=== PATIENT | male | born 1970 | race Caucasian/White ===

== ENCOUNTER 2021-03-17 16:46 | Emergency (ER) | payer MEDICAID, SELFPAY ==
[2021-03-17 16:54] VITALS: BP 160/80; PULSE 73; RESP 20; TEMP 36.8; O2SAT 95; BMI 28.1
--- NOTE | 2021-03-17 17:15 | W.ED.ALCOHOL ---
HPI - Alcohol General: Chief Complaint: Alcohol Stated Complaint: SI; ETOH Time Seen by Provider: 03/17/21 16:50 History of Present Illness: HPI narrative: 51-year-old male presents emergency room acutely intoxicated EMS. Ambulance was called evidently by family members according the patient after he punched a window out to get out more alcohol is been drinking heavily throughout the day drinks 12 pack of high alcohol content beer. He still appears under the influence. However he is awake alert answers questions appropriately is polite and follows all instructions were given. He is not opposed to exam. When asked about suicidal homicidal ideation he was adamantly denied. On multiple occasions every asked him he denies. Asked him why family member might think the call about him potentially being suicidal he says he thought it was a brother who was trying to keep him from drinking. He readily admits he is intoxicated. 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 He states it has been a problem since the stroke and is part of the reason he drinks. 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 There are no family members present to give any other history. 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 Chronic alcohol use: Yes Recent trauma: No Associated symptoms: Reports depression; Deny abdominal pain, diaphoresis, hematemesis, involuntary movements, melena, nausea, seizure-like activity, suicidal ideation, syncope or vomiting Review of Systems Const: Denies: diaphoresis Card: Denies: syncope GI: Denies: abdominal pain, nausea, vomiting, hematemesis or melena Neuro: Denies: seizure-like activity or involuntary movements Psych: Reports: depression; Denies: suicidal ideation Physical Exam Const: COMMON NORMALS: no acute distress ORIENTATION/CONSCIOUSNESS: Yes awake HENMT: COMMON NORMALS: normocephalic, atraumatic and hearing grossly normal bilaterally HEAD & SCALP: normocephalic and atraumatic Eye: COMMON NORMALS: Equal, round and reactive pupils present, EOMs intact bilaterally, conjunctivae normal and no scleral icterus CONJUNCTIVA: Yes conjunctivae normal PUPIL: Yes Equal, round and reactive pupils present Neck/C-Spine: COMMON NORMALS: no JVD Lymph: LYMPHATIC: no lymphadenopathy noted and no lymphedema noted Resp: COMMON NORMALS: normal respiratory effort, No retractions, No use of accessory muscles and clear to auscultation bilaterally AUSCULTATION: clear to auscultation bilaterally Cardio: COMMON NORMALS: no JVD, regular rate, regular rhythm and No murmurs present (Cardio) RATE: regular rate RHYTHM: regular rhythm GI: COMMON NORMALS: Soft to palpation and No hepatosplenomegaly present AUSCULTATION: Yes normoactive bowel sounds PALPATION: Yes Soft to palpation, No Tenderness to palpation present (GI), No Guarding due to palpation present (GI) and Yes No hepatosplenomegaly present Extremity: COMMON NORMALS: normal to inspection, capillary refill normal, no clubbing, cyanosis or edema, no calf tenderness and no pedal edema Skin: COMMON NORMALS: no rashes or lesions noted GENERAL SKIN EXAM: no rashes or lesions noted Course Vital Signs: Vital signs: Vital Signs Temperature 98.3 F 03/17/21 16:54 Pulse Rate 73 03/17/21 16:54 Respiratory Rate 20 H 03/17/21 16:54 Blood Pressure 160/80 03/17/21 16:54 Pulse Oximetry 95 03/17/21 16:54 MDM - Alcohol MDM Narrative: Medical decision making narrative: No suicidal or homicidal ideation. Will discharge patient home encourage stop drinking give him contacts for [facility]. Discharge Plan Discharge Patient Disposition: Home Clinical Impression: Alcoholic intoxication Condition: Stable Discharge Orders: Discharge ED (Routine); Ordered 03/24/21 Ordered By: Jarret Soto Discharge Diet: Usual diet Discharge Activity: Resume usual activity Patient Instructions: Alcohol Intoxication (ED), Abuse of Alcohol (ED), Opioid Safety Activity Restrictions/Additional Instructions: Do not drink alcohol. Coding Level of Care Code ED Sports Athletic Trainer for Ricky Fwd Exam Comprehensive
== END 2021-03-17 17:46 | disposition home or self-care (01) ==
PROVIDERS: Emergency Provider Family Medicine
DX: F10.129 Alcohol abuse with intoxication, unspecified (principal); Y90.9 Presence of alcohol in blood, level not specified
CPT/HCPCS: 99282